=== PATIENT | female | born 1930 | race Caucasian/White ===

== ENCOUNTER 2017-03-27 13:53 | Emergency (ER) | payer OTHER ==
[~2017-03-27] VITALS: Ht 162.6 cm; Wt 95.3 kg
[~2017-03-27 13:53] MED LIST: LEVO75TA5 PO
--- NOTE | 2017-03-27 14:29 | EKG ---
[address] [address] Test Date: 2017-03-27 Test Time: 14:24:56 Pat Name: NATALI BARRIGA Department: Room: Gender: F County Agent: PATSY : 1930 Requested By: ALEX HERNANDEZ Order Number: [id number] Reading MD: Measurements Intervals [place] Rate: 60 P: 36 UT: 164 QRS: -5 QRSD: 104 T: 39 QT: 422 QTc: 426 Interpretive Statements SINUS RHYTHM LEFTWARD AXIS QRS(T) CONTOUR ABNORMALITY CANNOT RULE OUT ANTEROSEPTAL MYOCARDIAL DAMAGE RI6.01 Unconfirmed report No previous ECG available for comparison
[2017-03-27 14:32] LABS: BASO # 0.1 x10^3/uL (0.0-0.2); BASO % 1 % (0-3); EOS # 0.4 x10^3/uL (0.0-0.7); EOS % 5 % (0-3); HEMATOCRIT 31.2 % (36.0-47.0); HEMOGLOBIN 9.7 g/dL (12.0-15.5); LYMPH # 1.5 x10^3/uL (1.0-4.8); LYMPH % 19 % (24-48); MEAN CORPUSCULAR HEMOGLOBIN 24 pg (25-35); MEAN CORPUSCULAR HGB CONC 31 g/dL (31-37); MEAN CORPUSCULAR VOLUME 77 fL (79-100); MONO % 13 % (0-9); NEUT % 63 % (31-73); PLATELET COUNT 300 x10^3/uL (140-400); RED BLOOD COUNT 4.03 x10^6/uL (3.50-5.40); RED CELL DISTRIBUTION WIDTH 16.9 % (11.5-14.5)
[2017-03-27 14:40] LABS: CALCIUM 9.2 mg/dL (8.5-10.1); GFR 52.7; POTASSIUM 4.3 mmol/L (3.5-5.1)
--- NOTE | 2017-03-27 15:47 | PHYS DOC ---
Past History Past Medical History: No Pertinent History Past Surgical History: No Surgical History Additional Smoking Information: Pt is not willing to answer. Alcohol Use: None Additional Alcohol Information: Pt is not willing to anwser. Drug Use: None Adult General Chief Complaint Chief Complaint: PSYCH EVALUATION HPI HPI Patient is a 86 year old F who presents for psychiatric evaluation, referred by her primary care doctor. Kim's history is limited due to her unwillingness to talk. She is unwilling to answer any questions. However she did speak very clearly and articulately when refusing portions of the exam. Review of Systems Review of Systems Unable to obtain as the patient is unwilling to answer questions Family History Family History Noncontributory Current Medications Current Medications Medications reviewed Allergies Allergies Allergies Coded Allergies Type Severity Reaction Last Updated Verified Penicillins Allergy Intermediate 07/29/14 Yes azithromycin Allergy Intermediate 07/29/14 Yes cephalexin Allergy Intermediate 07/29/14 Yes pseudoephedrine Allergy Intermediate 07/29/14 Yes Physical Exam Physical Exam Constitutional: Well developed, well nourished, no acute distress, non-toxic appearance. [] HENT: atraumatic, bilateral external ears normal, oropharynx moist Eyes: EOMI, conjunctiva normal, no discharge. [] Neck: Normal range of motion, no tenderness, supple, no stridor. [] Cardiovascular:Heart rate regular rhythm, Lungs & Thorax: Bilateral breath sounds clear to auscultation [] limited as patient is unwilling to follow commands Abdomen: Bowel sounds normal, soft, no tenderness, no masses, no pulsatile masses. [] Unable to visually inspect abdomen as patient is unwilling to allow exam Skin: Warm, dry, no erythema, no rash. [] Limited due to patient's unwillingness to follow commands Back: No tenderness, no CVA tenderness. [] Extremities: No tenderness, no cyanosis, no clubbing, no edema. [] Neurologic: no focal deficits noted. [] Limited due to unwillingness to comply with exam Psychologic: Limited due to unwillingness to comply with exam Current Patient Data Vital Signs Vital Signs Date Time Temp Pulse Resp B/P (MAP) Pulse Ox O2 Delivery O2 Flow Rate FiO2 03/27/17 15:00 98.0 57 18 124/70 (88) 98 Room Air Lab Results Laboratory Tests Test 03/27/17 14:21 White Blood Count 8.0 x10^3/uL (4.0-11.0) Red Blood Count 4.03 x10^6/uL (3.50-5.40) Hemoglobin 9.7 g/dL (12.0-15.5) L Hematocrit 31.2 % (36.0-47.0) L Mean Corpuscular Volume 77 fL (79-100) L Mean Corpuscular Hemoglobin 24 pg (25-35) L Mean Corpuscular Hemoglobin Concent 31 g/dL (31-37) Red Cell Distribution Width 16.9 % (11.5-14.5) H Platelet Count 300 x10^3/uL (140-400) Neutrophils (%) (Auto) 63 % (31-73) Lymphocytes (%) (Auto) 19 % (24-48) L Monocytes (%) (Auto) 13 % (0-9) H Eosinophils (%) (Auto) 5 % (0-3) H Basophils (%) (Auto) 1 % (0-3) Neutrophils # (Auto) 5.0 x10^3uL (1.8-7.7) Lymphocytes # (Auto) 1.5 x10^3/uL (1.0-4.8) Monocytes # (Auto) 1.0 x10^3/uL (0.0-1.1) Eosinophils # (Auto) 0.4 x10^3/uL (0.0-0.7) Basophils # (Auto) 0.1 x10^3/uL (0.0-0.2) Sodium Level 140 mmol/L (136-145) Potassium Level 4.3 mmol/L (3.5-5.1) Chloride Level 104 mmol/L (98-107) Carbon Dioxide Level 31 mmol/L (21-32) Anion Gap 5 (6-14) L Blood Urea Nitrogen 27 mg/dL (7-20) H Creatinine 1.0 mg/dL (0.6-1.0) Estimated GFR (Cockcroft-Gault) 52.7 Glucose Level 100 mg/dL (70-99) H Calcium Level 9.2 mg/dL (8.5-10.1) EKG EKG Normal sinus rhythm Course & Med Decision Making Course & Med Decision Making Pertinent Labs and Imaging studies reviewed. (See chart for details) There are no obvious concerns that Kim is a danger to herself or others. However her evaluation is limited due to her unwillingness to participate in her care. Dragon Disclaimer Dragon Disclaimer This chart was dictated in whole or in part using Voice Recognition software in a busy, high-work load, and often noisy Emergency Department environment. It may contain unintended and wholly unrecognized errors or omissions. Departure Departure: Impression: Primary Impression: Encounter for medical screening examination Disposition: HOME, SELF-CARE Condition: STABLE Referrals: ALEX BAIRES MD (PCP) Patient Instructions: Medical Screening Exam Additional Instructions: Kim was seen in the emergency department for medical screening. No emergency medical condition was found history or physical exam. She had normal labs and EKG. She was discharged in stable condition to follow up with her primary care doctor as needed ALEX HERNANDEZ MD Mar 27, 2017 15:47
[2017-03-27 16:02] VITALS: BP 144/75
== END 2017-03-27 16:12 | disposition home or self-care (01) ==
LOC: ER 13:53
DX: Z00.8 Encounter for other general examination (principal); Z88.0 Allergy status to penicillin; Z88.1 Allergy status to other antibiotic agents; Z88.8 Allergy status to other drugs, medicaments and biological substances
CPT/HCPCS: 36415; 80048; 85025; 93005; 99285-25